=== PATIENT | female | born 1990 | race Two or more races ===

== ENCOUNTER 2017-04-22 11:00 | Emergency (ER) | payer OTHER ==
[2017-04-22 11:19] VITALS: BP 101/60
--- NOTE | 2017-04-22 11:46 | UC ---
Complaint Female HPI - HPI Summary HPI Summary: 26 y/o female presents to the urgent care c/o pelvic pain and vaginal bleeding since last. Pt states she did a test 1 week ago and it was positive. Yesterday she was spotting and pelvic pain developed this morning with vaginal bleeding passing out big clots. Pelvic pain is 9/10. LMP: 2016 with regular menstrual cycles. She felt a relief of her pelvic pain when she passed out a big clot at home. She thinks she is having a miscarriage. She has now change 4 pads. Pt denies fever, SOB, chest pain, N/V/D. - History Of Current Complaint Chief Complaint: UCGU Stated Complaint: PERSONAL Time Seen by Provider: 04/22/17 11:39 Hx Obtained From: Patient Hx Last Menstrual Period: 02/27/17 ?: Yes Onset/Duration: Sudden Onset, Lasting Hours - since last night, Still Present Timing: Constant Severity Initially: Moderate Severity Currently: Severe Pain Intensity: 9 - pelvic pain Pain Scale Used: 0-10 Numeric Character: Sharp, Cramping Aggravating Factor(s): Movement Alleviating Factor(s): Position Associated Signs And Symptoms: Positive: Vaginal Bleeding/Discharge, Nausea - Risk Factors Ectopic Risk Factor: Negative Ovarian Torsion Risk Factor: Negative - Allergies/Home Medications Allergies/Adverse Reactions: Allergies Allergy/AdvReac Type Severity Reaction Status Date / Time No Known Allergies Allergy Verified 04/22/17 11:10 Home Medications: Home Medications NK [No Home Medications Reported] 04/22/17 [History Confirmed 04/22/17] PMH/Surg Hx/FS Hx/Imm Hx Previously Healthy: Yes - Surgical History Surgical History: None - Family History Known Family History: Positive: Diabetes - Social History Occupation: Employed Full-time Lives: With Family Alcohol Use: None Substance Use Type: None Smoking Status (MU): Light Every Day Tobacco Smoker Amount Used/How Often: states social smoker Have You Smoked in the Last Year: No - Immunization History Most Recent Influenza Vaccination: unknown Most Recent Tetanus Shot: within last 2 yrs per record Most Recent Pneumonia Vaccination: none Review of Systems Constitutional: Negative Skin: Negative Eyes: Negative ENT: Negative Respiratory: Negative Cardiovascular: Negative Gastrointestinal: Negative Genitourinary: Other - vaginal bleeding with pelvic pain Neurovascular: Negative Musculoskeletal: Negative Neurological: Negative Psychological: Negative All Other Systems Reviewed And Are Negative: Yes Physical Exam Triage Information Reviewed: Yes Appearance: Well-Appearing, No Pain Distress, Well-Nourished, Thin Vital Signs: Initial Vital Signs Temp 99.0 F 04/22/17 11:12 Pulse 79 04/22/17 11:12 Resp 18 04/22/17 11:12 BP 101/60 04/22/17 11:12 Pulse Ox 99 04/22/17 11:12 Vital Signs Reviewed: Yes Eye Exam: Normal Eyes: Positive: Conjunctiva Clear - PERRLA, EOMI ENT Exam: Normal ENT: Positive: Normal ENT inspection, Hearing grossly normal, Pharynx normal, TMs normal Dental Exam: Normal Neck exam: Normal Neck: Positive: Supple, Nontender, No Lymphadenopathy Respiratory Exam: Normal Respiratory: Positive: Chest non-tender, Lungs clear, Normal breath sounds Cardiovascular Exam: Normal Cardiovascular: Positive: RRR, No Murmur, Pulses Normal, Brisk Capillary Refill Abdominal Exam: Normal Abdomen Description: Positive: No Organomegaly, Soft, Other: - B/L pelvic tenderness on deep palpation.. Negative: CVA Tenderness (R), CVA Tenderness (L) Musculoskeletal Exam: Normal Musculoskeletal: Positive: Strength Intact, ROM Intact, No Edema Neurological Exam: Normal Psychological Exam: Normal Skin Exam: Normal Complaint Female Dx - Course Course Of Treatment: 26 y/o female presents to the urgent care c/o pelvic pain and vaginal bleeding since last. Pt states she did a test 1 week ago and it was positive. Yesterday she was spotting and pelvic pain developed this morning with vaginal bleeding passing out big clots. Pelvic pain is 9/10. LMP: 02/27/2017 with regular menstrual cycles. She felt a relief of her pelvic pain when she passed out a big clot at home. She thinks she is having a miscarriage. She has now change 4 pads. Pt denies fever, SOB, chest pain, N/V/ D. Urine test is positive. By last LMP patient is approximately 7 weeks . Patient is no in any discomfort and she is hemodynamically stable. I discussed the case with Dr. Martins (attending Physician) and he recommended to transfer the patient to the ED for a pelvic U/S to r/o threatened miscarriage vs complete miscarriage. Patient still having mild vaginal bleeding and mild abdominal pain. She did not request any pain management. Before patient left the she is hemodynamically stable and A+O X 3. I discussed the case with Judith ABBOTT [place] [facility] [place]. She is aware of patient being transferred to their facility by private car since patient declined ambulance. - Differential Dx/Diagnosis Differential Diagnosis/HQI/PQRI: Ectopic, Ovarian Cyst, Pelvic Inflammatory Disease, , Urinary Tract Infection, Other - threatening , imcomplete , Provider Diagnoses: 1- Threatening . 2- with pelvic pain and vaginal bleeding - Physician Notifications Discussed Patient Care With: Valdo Martins - DR Martins agreed with pt's care and plan Discharge - Discharge Plan Condition: Stable Disposition: AGAINST MEDICAL ADVICE Patient Education Materials: Threatened Miscarriage (ED) Referrals: [facility] [Outside] No Primary Care Phys,NOPCP [Primary Care Provider] - Additional Instructions: Please go immediately to the [facility] ER for further evaluation and treatment of your threatening miscarriage. The ir risk of , , shock, ectopic , incomplete if you don't go to the ER.
[2017-04-22] MEDS ORDERED: Ibuprofen TAB* 400 MG PO ONE (12:36)
== END 2017-04-22 12:21 | disposition left against medical advice (07) ==
LOC: UCEAST 11:00
DX: O46.91 Antepartum hemorrhage, unspecified, first trimester (principal); Z3A.01 Less than 8 weeks gestation of pregnancy
CPT/HCPCS: 81003; 84702; 99212; G0463

== ENCOUNTER 2017-11-24 15:19 | Emergency (ER) | payer SELFPAY ==
[2017-11-24] MEDS ORDERED: Metoclopramide IV* 5 MG/ML 2 ML VIAL IV ONE (18:57)
[2017-11-24] MEDS ORDERED: NS 0.9% 1000 ML* 2,000 ML IV ONE (18:57)
[2017-11-24 19:15] LABS: ABS Basophils 0.1 10^3/ul (0-0.2); ABS Eosinophils 0 10^3/ul (0-0.6); ABS Lymphocytes 1.3 10^3/ul (1.0-4.8); ABS Monocytes 0.6 10^3/ul (0-0.8); ABS Neutrophils 8.8 10^3/ul (1.5-7.7); ABS Nucleated RBC 0 10^3/ul; Eosinophil % 0.2 % (0-6); Hematocrit 38 % (35-47); Hemoglobin 13.1 g/dl (12.0-16.0); Lymphocyte % 12.4 % (25-47); Mean Corpuscular HGB Conc 35 g/dl (31-36); Mean Corpuscular Hemoglobin 31 pg (27-31); Mean Corpuscular Volume 90 fL (80-97); Mean Platelet Volume 7.7 um3 (7.4-10.4); Nucleated Red Blood Cells % 0; Platelet Count 217 10^3/ul (150-450); Red Blood Count 4.21 10^6/ul (4.0-5.4); Red Cell Distribution Width 14 % (10.5-15); White Blood Count 10.8 10^3/ul (3.5-10.8)
[2017-11-24 19:20] LABS: INR 0.9 (0.77-1.02)
[2017-11-24 19:35] LABS: EGFR Non-African American 160.2 (>60)
--- NOTE | 2017-11-24 20:17 | RAD ---
Indication: 16 weeks 5 days gestation based on July 30, 2017 LMP. Vomiting. Comparison: No relevant prior exams available on the [facility] PACS for comparison. Technique: Transabdominal obstetrical ultrasound. REPORT: Single intrauterine fetus is in variable presentation. Spontaneous motion and cardiac activity present. heart rate: 144 bpm. The volume of amniotic fluid is qualitatively normal. Amniotic fluid index is 12.3 cm. (Normal range 5-25 cm) The cervical length is 2.9 cm. Fundal placenta without evidence for previa. Mean BPD: 3.75 cm corresponding to 17 weeks 4 days Mean HC: 13.65 cm corresponding to 17 weeks 1 day Mean AC: 11.76 cm corresponding to 17 weeks 4 days Mean FL: 2.27 cm corresponding to 16 weeks 6 days Composite gestational age: 17 weeks 2 days HC / AC ratio: 1.16 weight: 184 +/- 2.7 g. Three-vessel cord with normal ventral abdominal wall insertion. Limited four-chamber heart view due to early gestational age without gross abnormality. IMPRESSION: Single live intrauterine gestation with normal movement and normal cardiac activity with estimated gestational age of 17 weeks 2 days based on this exam.
[2017-11-24 20:44] LABS: Urine Appearance Clear; Urine Blood Negative (Negative); Urine Color Straw; Urine Ketones 2+ (Negative); Urine Protein Negative (Negative); Urine Urobilinogen Negative (Negative)
[2017-11-24] MEDS ORDERED: Metoclopramide TAB* 10 MG PO ONE (21:19)
--- NOTE | 2017-11-24 21:34 | ED ---
Holly Lerner Thomas, scribed for Ge Mejia MD on 11/24/17 at 1939 . 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 Hilario. The patient has been dealing with vomiting since her early . She feels nauseous, dehydrated, and feels as if she is about to pass out, especially when standing. She reports losing 20 pounds in the last few months. She denies any pain, diarrhea, constipation, vaginal discharge, runny nose, sore throat, cough, congestion, fever, or chills. LMP July 2017. - History of Current Complaint Chief Complaint: EDNauseaVomitDiarrh Stated Complaint: VOMITING Time Seen by Provider: 11/24/17 18:35 Hx Obtained From: Patient Onset/Duration: Started Weeks Ago, Still Present Timing: Intermittent Current Severity: Moderate Pain Intensity: 8 Associated Signs and Symptoms: Positive: Nausea, Vomiting. Negative: Fever - Assessment Hx Now: Yes - states SAB: 0 IEA: 0 - Additional Pertinent History Maternal Blood Type and Rh: O Positive - Allergies/Home Medications Allergies/Adverse Reactions: Allergies Allergy/AdvReac Type Severity Reaction Status Date / Time No Known Allergies Allergy Verified 11/24/17 15:24 PMH/Surg Hx/FS Hx/Imm Hx Endocrine/Hematology History: Denies: Hx Diabetes, Hx Thyroid Disease Cardiovascular History: Denies: Hx Hypertension Respiratory History: Denies: Hx Asthma, Hx Chronic Obstructive Pulmonary Disease (COPD) GI History: Denies: Hx Ulcer Infectious Disease History: No Infectious Disease History: Denies: Hx Hepatitis, Hx Human Immunodeficiency Virus (HIV), Traveled Outside the [place] in Last 30 Days - Family History Known Family History: Positive: Diabetes - Social History Alcohol Use: None Substance Use Type: Reports: None Smoking Status (MU): Light Every Day Tobacco Smoker Amount Used/How Often: states social smoker Have You Smoked in the Last Year: No Review of Systems Positive: Other - Feels dehydrated, as if about to pass out, weight loss. Negative: Fever, Chills Negative: Sore Throat, Nasal Discharge Negative: Cough, Other - congestion Positive: Vomiting, Nausea. Negative: Diarrhea, Other - constipation Negative: discharge Positive: Other - any pain All Other Systems Reviewed And Are Negative: Yes Physical Exam - Summary Physical Exam Summary: General: well-appearing, no pain distress Skin: warm, color reflects adequate perfusion, dry Head: normal Eyes: EOMI, HEIDY ENT: normal Neck: supple, nontender Respiratory: CTA, breath sounds present Cardiovascular: RRR Abdomen: soft, nontender Bowel: present Musculoskeletal: normal, strength/ROM intact Neurological: normal, sensory/motor intact, A&O x3 Psychological: affect/mood appropriate - Physical Exam Triage Information Reviewed: Yes Vital Signs Reviewed: Yes Diagnostics - Vital Signs Vital Signs Temp Pulse Resp BP Pulse Ox 11/24/17 19:00 74 115/56 100 11/24/17 18:30 73 113/63 98 11/24/17 18:26 73 98 11/24/17 18:25 116/62 11/24/17 17:20 99.5 F 67 16 118/64 11/24/17 15:21 98.7 F 77 15 108/60 98 - Laboratory Lab Results: Lab Results 11/24/17 11/24/17 11/24/17 Range/Units 18:55 18:55 18:55 WBC 10.8 (3.5-10.8) 10^3/ul RBC 4.21 (4.0-5.4) 10^6/ul Hgb 13.1 (12.0-16.0) g/dl Hct 38 (35-47) % MCV 90 (80-97) fL MCH 31 (27-31) pg MCHC 35 (31-36) g/dl RDW 14 (10.5-15) % Plt Count 217 (150-450) 10^3/ul MPV 7.7 (7.4-10.4) um3 Neut % (Auto) 81.2 (38-83) % Lymph % (Auto) 12.4 L (25-47) % Towner % (Auto) 5.6 (0-7) % Eos % (Auto) 0.2 (0-6) % Baso % (Auto) 0.6 (0-2) % Absolute Neuts (auto) 8.8 H (1.5-7.7) 10^3/ul Absolute Lymphs (auto) 1.3 (1.0-4.8) 10^3/ul Absolute Monos (auto) 0.6 (0-0.8) 10^3/ul Absolute Eos (auto) 0 (0-0.6) 10^3/ul Absolute Basos (auto) 0.1 (0-0.2) 10^3/ul Absolute Nucleated RBC 0 10^3/ul Nucleated RBC % 0 INR (Anticoag Therapy) 0.90 (0.77-1.02) Sodium 135 L (139-145) mmol/L Potassium 3.5 (3.5-5.0) mmol/L Chloride 101 (101-111) mmol/L Carbon Dioxide 22 (22-32) mmol/L Anion Gap 12 H (2-11) mmol/L BUN 8 (6-24) mg/dL Creatinine 0.47 L (0.51-0.95) mg/dL Est GFR ( Amer) 206.0 (>60) Est GFR (Non-Af Amer) 160.2 (>60) BUN/Creatinine Ratio 17.0 (8-20) Glucose 77 (70-100) mg/dL Lactic Acid (0.5-2.0) mmol/L Calcium 8.8 (8.6-10.3) mg/dL Total Bilirubin 0.60 (0.2-1.0) mg/dL AST 12 L (13-39) U/L ALT 9 (7-52) U/L Alkaline Phosphatase 43 (34-104) U/L C-Reactive Protein 3.93 (< 5.00) mg/L Total Protein 7.2 (6.4-8.9) g/dL Albumin 4.0 (3.2-5.2) g/dL Globulin 3.2 (2-4) g/dL Albumin/Globulin Ratio 1.3 (1-3) TSH Pending Beta HCG, Quant Pending 11/24/17 Range/Units 18:55 WBC (3.5-10.8) 10^3/ul RBC (4.0-5.4) 10^6/ul Hgb (12.0-16.0) g/dl Hct (35-47) % MCV (80-97) fL MCH (27-31) pg MCHC (31-36) g/dl RDW (10.5-15) % Plt Count (150-450) 10^3/ul MPV (7.4-10.4) um3 Neut % (Auto) (38-83) % Lymph % (Auto) (25-47) % Towner % (Auto) (0-7) % Eos % (Auto) (0-6) % Baso % (Auto) (0-2) % Absolute Neuts (auto) (1.5-7.7) 10^3/ul Absolute Lymphs (auto) (1.0-4.8) 10^3/ul Absolute Monos (auto) (0-0.8) 10^3/ul Absolute Eos (auto) (0-0.6) 10^3/ul Absolute Basos (auto) (0-0.2) 10^3/ul Absolute Nucleated RBC 10^3/ul Nucleated RBC % INR (Anticoag Therapy) (0.77-1.02) Sodium (139-145) mmol/L Potassium (3.5-5.0) mmol/L Chloride (101-111) mmol/L Carbon Dioxide (22-32) mmol/L Anion Gap (2-11) mmol/L BUN (6-24) mg/dL Creatinine (0.51-0.95) mg/dL Est GFR ( Amer) (>60) Est GFR (Non-Af Amer) (>60) BUN/Creatinine Ratio (8-20) Glucose (70-100) mg/dL Lactic Acid 0.9 (0.5-2.0) mmol/L Calcium (8.6-10.3) mg/dL Total Bilirubin (0.2-1.0) mg/dL AST (13-39) U/L ALT (7-52) U/L Alkaline Phosphatase (34-104) U/L C-Reactive Protein (< 5.00) mg/L Total Protein (6.4-8.9) g/dL Albumin (3.2-5.2) g/dL Globulin (2-4) g/dL Albumin/Globulin Ratio (1-3) TSH Beta HCG, Quant Result Diagrams: 11/24/17 18:55 11/24/17 18:55 Lab Statement: Any lab studies that have been ordered have been reviewed, and results considered in the medical decision making process. - EKG 19:35 Cardiac Rate: NL ST Segment: Normal EKG Interpretation: Sinus arrythmia at 75 BPM. Borderline prolonged QT interval (QTc 476). - Additional Comments Diagnostic Additional Comments: US PREG LIMITED Interpreted by radiologist. IMPRESSION: Single live intrauterine gestation with normal movement and normal cardiac activity with estimated gestational age of 17 weeks 2 days based on this exam. Dr. Mejia has reviewed this report. Course/Dx - Course Course Of Treatment: Medications reviewed. Feels improved in ED after IVF and reglan. Discussed results with the patient and family. F/U with Dr Hilario; return if worse. - Diagnoses Provider Diagnoses: Nausea/vomiting in Discharge - Sign-Out/Discharge Documenting (check all that apply): Discharge - Discharge Plan Condition: Stable Disposition: HOME Prescriptions: Metoclopramide TAB* [Reglan TAB*] 10 mg PO Q6H PRN #10 tab PRN Reason: Nausea Patient Education Materials: Nausea and Vomiting in (ED) Referrals: Azar Hilario MD [Medical Doctor] - Additional Instructions: FOLLOW UP WITH YOUR OBGYN. RETURN TO THE EMERGENCY DEPARTMENT FOR ANY WORSENING OF YOUR CONDITION OR QUESTIONS OR CONCERNS. - Billing Disposition and Condition Condition: STABLE Disposition: HOME The documentation as recorded by the Holly adames Thomas accurately reflects the service I personally performed and the decisions made by me, Ge Mejia MD.
[2017-11-24 21:38] VITALS: BP 154/92
== END 2017-11-24 21:39 | disposition home or self-care (01) ==
LOC: ED 15:19
DX: O21.0 Mild hyperemesis gravidarum (principal); I49.9 Cardiac arrhythmia, unspecified; Z3A.17 17 weeks gestation of pregnancy; Z87.891 Personal history of nicotine dependence
CPT/HCPCS: 36415; 76815; 80053; 81003; 83605; 84443; 84702; 85025; 85610; 86140; 93005; 96374; 99284; A9270-GY; J2765

== ENCOUNTER 2018-04-29 11:28 | Inpatient (IN) | payer MEDICAID, OTHER ==
--- NOTE | 2018-04-29 12:54 | HP ---
General Information - Reason for Visit SROM, early labor - General Information Maternal Age: 27 Grav: 6 Para: 3 SAB: 2 IEA: 0 Estimated Due Date: 05/06/18 Determined By: LMP Maternal Blood Type and Rh: O Positive - Results this Serology/RPR Result: Non-Reactive Rubella Result: Immune HBsAg Result: Negative HIV Result: Negative GBS Culture Result: Negative Past Medical History Delivery History: Hx Uncomplicated Vaginal Delivery Pertinent Past Medical History: See Records Pertinent Past Surgical History: None Pertinent Family History: See Records - Dm, colon CA - Antepartal Records Antepartal Records: Reviewed, Complicated by: - hx labor and delivery at 36weeks Review of Systems Constitutional: Comfortable CV Complaint: No Respiratory: Shortness of Breath: No Gastrointestinal: No Nausea/Vomiting, Normal Bowel Movement Genitourinary: Leaking Fluid, No Dysuria, No Bleeding Musculoskeletal: Contractions Neurological: No Headache, No Visual Changes Movement: Normal Exam Allergies/Adverse Reactions: Allergies No Known Allergies Allergy (Verified 11/24/17 15:24) T:98.5, P:71, R:18, BP: 110/68, O2:99 - Measurements Height: 5 ft 4 in Weight: 145 lb Weight in lbs: [id number] Body Mass Index (BMI): 24.9 Pre- Weight: 110 lb Weight Gained This : 35 lbs and 0 ozs - Exam Breast: Breast Exam Deferred CVA: No CVA Tenderness Extremities: No Edema Heart: Normal Rhythm/Heart Sounds HEENT: No Significant Findings Lungs: Clear Bilaterally Rectal: Rectal Exam Deferred Reflexes: DTR 2+ Thyroid: No Thyromegaly - Ultrasound/Biophysical Profile Ultrasound Status: Not Done Targeted Exam Findings Estimated Weight: [id number] Cervical Exam: 3cm Effacement: 80% Station: -1 Presenting Part: Vertex Membrane Status: Leaking Bleeding/Discharge: Bloody Show EFM Findings - External Monitor Findings Baseline Heart Rate: 140 External Monitor Findings: Accelerations Present, No Pattern of Variable or Late Decelerations, Variability Moderate, Baseline Stable Contractions: Regular, Mild, 45-90 Seconds Contraction Frequency: 3-4 Assessment/Plan - Assessment 27 y.o. at 39 wks, SROM, VSS, afebrile, early labor - Plan Plan: Observe - plan augmentation if no progress
--- NOTE | 2018-04-29 17:12 | PN ---
Progress Note - Progress Note Date of Service: 04/29/18 Note: S:Pt increasingly uncomfortable with ctx. Increased pressure without urge to push. Pt reports continued LOF, -VB, +FM. O: T 99.0F. NST: baseline 125bpm, +accels, -decels, mod variability. Ctx q 3min. cervical exam at 4pm: 4/90/-1 A: 27 y.o. at 39weeks EGA, active labor. P: 1) Anticipate vaginal delivery 2) position changes and therapeutic support PRN
[2018-04-29] MEDS ORDERED: Calcium Carbonate CHEW TAB* 500 MG (TUMS) ONE (18:12)
--- NOTE | 2018-04-29 18:34 | PROCNOTE ---
[facility] OB: Delivery Note - Delivery A Date of : 04/29/18 Time of : 18:21 Sex: Male Score 1 Minute: 9 Score 5 Minutes: 9 Gestational Age in Weeks and Days at Delivery: 39 Weeks and 0 Days Delivery Method: Spontaneous Vaginal Amniotic Fluid: Clear Estimated Blood Loss: 200 Anesthesia/Analgesia: None Delivered By: Hannah Soliman - Perineum Perineal Injury: None/Intact Perineal Repair: None - Events Delivery Events of Note: Pitocin Only After Delivery Delivery Events of Note Comment: nuchal cord x 1
[2018-04-29] MEDS ORDERED: Dibucaine 1% 28.35 GM TUBE PR PRN (19:58)
[2018-04-29] MEDS ORDERED: Witch Hazel PAD* JAR TOPICAL PRN (19:58)
[2018-04-29] MEDS ORDERED: Glycerin ADULT SUPP PR PRN (19:58)
[2018-04-29] MEDS ORDERED: Acetaminophen TAB* 325 MG PO PRN (19:58)
[2018-04-29] MEDS ORDERED: OXYTOCIN* 10 UNITS/ML 1 ML VIAL IM ONE (19:58)
[2018-04-29] MEDS ORDERED: Ibuprofen TAB* 600 MG ONE (20:02)
[2018-04-29] MEDS: Ibuprofen TAB* 600 MG PO PRN (20:03)
[2018-04-29] MEDS ORDERED: Simethicone TAB* 80 MG TAB.CHEW PO SCH (21:00)
[2018-04-30] MEDS: Ibuprofen TAB* 600 MG PO PRN ×3 (03:31→15:47)
[2018-04-30 07:14] LABS: ABS Basophils 0.1 10^3/ul (0-0.2); ABS Eosinophils 0.1 10^3/ul (0-0.6); ABS Lymphocytes 2.1 10^3/ul (1.0-4.8); ABS Monocytes 1.2 10^3/ul (0-0.8); ABS Neutrophils 11.2 10^3/ul (1.5-7.7); ABS Nucleated RBC 0 10^3/ul; Eosinophil % 0.4 % (0-6); Hematocrit 36 % (35-47); Hemoglobin 12.3 g/dl (12.0-16.0); Lymphocyte % 14.1 % (25-47); Mean Corpuscular HGB Conc 34 g/dl (31-36); Mean Corpuscular Hemoglobin 29 pg (27-31); Mean Corpuscular Volume 87 fL (80-97); Mean Platelet Volume 7.9 um3 (7.4-10.4); Nucleated Red Blood Cells % 0; Platelet Count 197 10^3/ul (150-450); Red Cell Distribution Width 14 % (10.5-15); White Blood Count 14.7 10^3/ul (3.5-10.8)
[2018-04-30] MEDS ORDERED: Ferrous Gluconate TAB* 324 MG TAB PO SCH (09:00)
[2018-04-30] MEDS: Docusate CAP* 100 MG PO SCH ×2 (09:34→13:07)
[2018-04-30 16:10] VITALS: BP 101/61
== END 2018-04-30 16:15 | disposition home or self-care (01) | DRG 560 ==
LOC: MCHOBOUT 11:28 → MCHOB 11:44
PROVIDERS: ADMIT Midwife; ATTEND Midwife
PROC: 10E0XZZ Delivery of Products of Conception, External Approach (ICD-10-PCS; principal; 2018-04-29)
PROC: 10907ZC Drainage of Amniotic Fluid, Therapeutic from Products of Conception, Via Natural or Artificial Opening (ICD-10-PCS; 2018-04-29)
DX: O69.81X0 Labor and delivery complicated by cord around neck, without compression, not applicable or unspecified (principal); Z3A.39 39 weeks gestation of pregnancy; Z37.0 Single live birth
CPT/HCPCS: 36415; 85025; A9270-GY; J2590

== ENCOUNTER 2018-09-25 17:48 | Emergency (ER) | payer OTHER ==
--- NOTE | 2018-09-25 19:33 | ED ---
Lower Extremity - HPI Summary HPI Summary: 28-year-old female presents with right foot injury today. States she stubbed her right foot. She states that there is a little abrasion this bleeding. She denies any numbness or tingling. States still able to ambulate on the area. She denies any other injury. No significant medical conditions. no previous fracture to the area. - History of Current Complaint Chief Complaint: EDExtremityLower Stated Complaint: RT FOOT INJURY Time Seen by Provider: 09/25/18 19:06 Hx Last Menstrual Period: 02/27/17 Pain Intensity: 9 - Allergies/Home Medications Allergies/Adverse Reactions: Allergies Allergy/AdvReac Type Severity Reaction Status Date / Time No Known Allergies Allergy Verified 11/24/17 15:24 Home Medications: Home Medications NK [No Home Medications Reported] 09/25/18 [History Confirmed 09/25/18] PMH/Surg Hx/FS Hx/Imm Hx Endocrine/Hematology History: Denies: Hx Diabetes, Hx Thyroid Disease Cardiovascular History: Denies: Hx Hypertension Respiratory History: Denies: Hx Asthma, Hx Chronic Obstructive Pulmonary Disease (COPD) GI History: Denies: Hx Ulcer Infectious Disease History: No Infectious Disease History: Denies: Hx Hepatitis, Hx Human Immunodeficiency Virus (HIV), Traveled Outside the [place] in Last 30 Days - Family History Known Family History: Positive: None, Diabetes - Social History Alcohol Use: None Substance Use Type: Reports: None Smoking Status (MU): Never Smoked Tobacco Type: Cigarettes Amount Used/How Often: states social smoker Have You Smoked in the Last Year: No Review of Systems Negative: Fever Negative: Chest Pain Negative: Shortness Of Breath Positive: Myalgia - right foot pain All Other Systems Reviewed And Are Negative: Yes Physical Exam Triage Information Reviewed: Yes Vital Signs On Initial Exam: Initial Vitals Temp Pulse Resp BP Pulse Ox 98.6 F 82 18 112/67 97 09/25/18 17:55 09/25/18 17:55 09/25/18 17:55 09/25/18 17:55 09/25/18 17:55 Vital Signs Reviewed: Yes Appearance: Positive: Well-Appearing Skin: Positive: Warm, Dry, Other - abrasion to end of nail of right great toe Head/Face: Positive: Normal Head/Face Inspection Eyes: Positive: Normal, Conjunctiva Clear ENT: Positive: Pharynx normal Respiratory/Lung Sounds: Positive: Clear to Auscultation, Breath Sounds Present Cardiovascular: Positive: Normal, RRR Musculoskeletal: Positive: Other - tenderness right great toe, good pulses, capillary refill<2 secs Neurological: Positive: Normal Psychiatric: Positive: Normal Diagnostics - Vital Signs Vital Signs Temp Pulse Resp BP Pulse Ox 09/25/18 17:55 98.6 F 82 18 112/67 97 - Laboratory Lab Statement: Any lab studies that have been ordered have been reviewed, and results considered in the medical decision making process. - Radiology foot Radiology Interpretation Completed By: ED Physician Summary of Radiographic Findings: no fracture Lower Extremity Course/Dx - Course Course Of Treatment: 28-year-old female presents with right foot injury today. States she stubbed her right foot. She states that there is a little abrasion this bleeding. She denies any numbness or tingling. States still able to ambulate on the area. She denies any other injury. No significant medical conditions. On exam tenderness of right great toe. Has abrasion noted to right great toe. X-ray read by me as normal. Told to treat with rice. Patient understands agrees plan - Diagnoses Differential Diagnosis/HQI/PQRI: Positive: Fracture (Closed), Sprain, Strain Provider Diagnoses: Right foot injury Discharge - Sign-Out/Discharge Documenting (check all that apply): Patient Departure Patient Received Moderate/Deep Sedation with Procedure: No - Discharge Plan Condition: Good Disposition: HOME Patient Education Materials: R.I.C.E. Treatment (ED) Referrals: No Primary Care Phys,NOPCP [Primary Care Provider] - Additional Instructions: Wear hard sole shoes Ice, elevate keep abrasion clean Take Tylenol or ibuprofen for pain every 6 hours as needed Follow up with primary if no improvement Return to ED if develop or any new or worsening symptoms - Billing Disposition and Condition Condition: GOOD Disposition: Home
[2018-09-25 19:44] VITALS: BP 109/70
--- NOTE | 2018-09-26 15:50 | PN ---
Progress Note - Progress Note Date of Service: 09/25/18 Note: Pt. was seen in the ED yesterday for foot injury. Xray read as negative in ED last night. Final radiology report today is reading a slightly angulated fx of the proximal phalanx of the second digit. I attempted to call pt. today around 1330 with no answer, message left to return call. Tried calling 's number listed in chart which was disconnected. Will send letter.
== END 2018-09-25 19:43 | disposition home or self-care (01) ==
LOC: ED 17:48
DX: S99.921A Unspecified injury of right foot, initial encounter (principal); M79.671 Pain in right foot; W22.8XXA Striking against or struck by other objects, initial encounter; Y92.9 Unspecified place or not applicable
CPT/HCPCS: 99282

== ENCOUNTER 2019-09-03 22:38 | Emergency (ER) | payer OTHER ==
--- OUTSIDE RECORDS SUMMARY | 2019-09-03 22:53 | XMS REPORT | Continuity of Care Document ---
:1990 Author Organization [facility] Address [address] [place] [address] Phone Care Team Providers Name Role Phone Natalie Le NP Unavailable Unavailable Allergies, Adverse Reactions, Alerts Substance Reaction Status No Known Allergies Active Medications Medication Instructions Dosage Effective Dates Status Comments (start - stop) Depo-Provera 150 IM Q 11-13 weeks - Active mg/mL intramuscular suspension Depo-Provera 150 IM Q 11-13 weeks - No Longer mg/mL intramuscular Active suspension Problems Condition Effective Dates (start - Clinical Status Comments stop) Human immunodeficiency virus [HIV] - counseling Encounter for oth general cnsl and - advice on contraception Encounter for initial prescription of injectable contracep Encounter for test, result negative Encntr screen for infections w sexl mode of transmiss Encounter for test, result negative Body mass index (BMI) 24.0-24.9, adult Encounter for initial prescription of injectable contracep Encntr screen for infections w sexl mode of transmiss Human immunodeficiency virus [HIV] - counseling Encounter for removal of intrauterine contraceptive device Encounter for insertion of intrauterine contraceptive device Encntr for f/u exam aft trtmt for cond oth than malig neoplm Encounter for elective termination of 9 weeks gestation of Encounter for oth general cnsl and advice on contraception Encntr screen for dis of the bld/bld-form org/immun mechnsm Encounter for test, result positive Encounter for oth general cnsl and advice on contraception Encntr screen for infections w sexl mode of transmiss Encounter for elective termination of Encntr screen for dis of the bld/bld-form org/immun mechnsm 9 weeks gestation of Encounter for test, result positive Encounter for test, result positive Weeks of gestation of not specified Encounter for surveillance of other contraceptives Encounter for initial prescription of other contraceptives Encntr screen for dis of the bld/bld-form org/immun mechnsm Encounter for elective termination of Less than 8 weeks gestation of Encounter for test, result positive Encounter for test, result positive Weeks of gestation of not specified RhD positive - Active Procedures Procedure Date PREVENTIVE COUNSELING, Under 8 Minutes OFFICE/OUTPATIENT VISIT, EST URINE TEST N.GONORRHOEAE, DNA, AMP PROB CHYLMD DNA, AMP PROBE INJECTION DEPO/CEFTRIAXONE DEPO BLOOD PRESSURE Height/Weight Method Initiation OTHER Medical Services Contraceptive Camp Nurse.Svc. Other Camp Nurse.Svc. STI Results Test Name Date and Time Measure Units Reference Range Abnormal Flag Status Comments Panel Description: C trach DNA XXX Ql PCR Final Urine CT/GC 00:00:00 Negative N Final Performed by:
CDD Combo - CT ([id number])

Panel Description: Amplified GC - Urine Final Urine CT/GC 00:00:00 Negative N Final : Combo - GC No

Performed by:
CDD ([id number])

Panel Description: High Sensitivity Urine Test Final High Sensitivity Urine 10:58:06 NegativeInternal Quality Final Test Control: Positive Advance Directives Directive Yes / No Effective Date File Name No information Encounters Encounter Practice Location Reason(s) Diagnoses Date Provider Providers Description For Visit Copied on Encounter OFFICE/OUTPA [facility] Rey Estrada. Referring TIENT VISIT, [facility] immunodeficienc 1-201 [address] [place] [address] Provider: EST Of Greater Renewal y virus [HIV] [address] St, [place], [place], ([place], [address], [place], [address] complaint) nter for oth [place]. [address], [place] general cnsl St, [place], [place], [place], [place], [address]. [address], [place] contraceptionEn tel:[phone] counter for [phone] initial prescription of injectable contracepEncoun ter for test, result negativeEncntr screen for infections w sexl mode of transmiss [facility] Encounter for Rey Estrada. Referring [facility] [place] test, 0-201 [address] [place] Provider: Of Greater result [address], [place], [facility], [place], [address], [place], [address] mass index [place]. [address] [place] , New (BMI) St, [place], [place], [place], 24.0-24.9, [place], [address]. [address], [place] adultEncounter tel:[phone] for initial [phone] prescription of injectable contracepEncntr screen for infections w sexl mode of transmiss [facility] [place] immunodeficienc 9. [address] Of Greater y virus [HIV] [address] [place] [address] , [place], counselingEncou [place], [place], [address] [place] [address]. [address], New removal of tel:[phone] [place], [place], intrauterine [address], [place] contraceptive tel:[phone] [facility] Encounter for Rey Estrada. Referring [facility] [place] insertion of 4 [address] [place] [address] [place] Provider: Of Greater intrauterine [address], [place], [place], [place], [address], Shona R, [address] deviceEncntr [place]. [address], [place] for f/u exam [address], [place], [place], [place], [address], [place] cond oth than [address]. tel:[phone] malig neoplm tel:[phone] [facility] Encounter for Rey Estrada. Referring [facility] [place] elective 8 [address] [place] [address] [place] Provider: Of Greater termination of 6 , [place], [place], [place], [address], Shona R, [address] weeks gestation [place]. [address], [place] of [place] [address], [place], [place], [place], [address], [place] ter for oth [address]. tel:[phone] general cnsl tel:[phone] and advice on [phone] contraception [facility] Encntr screen Dec-0 White [place]. [facility] for dis of the 7 [address] [place] [address] Of Greater bld/bld-form 6 , [place], [place], org/[place], [address], [address] [place]. St, [facility] for [place], [place], test, result [address], [place] positiveEncount tel:[phone] er for oth [phone] general cnsl and advice on contraceptionEn cntr screen for infections w sexl mode of transmiss [facility] Encounter for Mar-1 Shona Referring [facility] elective 1-201 [place]. [address] Provider: Of Greater termination of [address], [place], pregnancyEncntr [place], [place], Shona R, [address] screen for dis [address]. [address] , [place] of the tel:[phone], [place], [place], bld/bld-form [address] [place], [address], [place] org/immun [address]. tel:[phone] mechnsm9 weeks tel:[phone] gestation of 744482 [facility] Encounter for Mar-1 Shona [facility] [place] test, 0-201 [place]. [address] Of Greater result positive [address], [place], [place], [place], [address], New tel:[phone] [place], [address], [place] tel:[phone] [facility] Encounter for Mar-1 [employer] [facility] test, 0-201 Carissa. [address] Provider: Of Greater result [address], NURSE [place], positiveWeeks [place], [place], PPSFL. [address] [place] [address], not tel:[phone] [place], specified [address], [place] tel:[phone] [facility] Fe-0 Kavon Hendricks. [facility] [place] [address] [place] [address] Of Greater [address], [place], [place], [address]. [address] tel:[phone] , [place] [address] [place], [address], [place] tel:[phone] [facility] Encounter for Aug- Jarrodoson [facility] [place] surveillance of -201 Qasim. [address] Of Greater other [address] [place] [address] [place], [place], contraceptives [place], [place], [address] [address], [place] tel:[phone] [place], [address], [place] tel:[phone] [facility] Encounter for Jun- Kavon Hendricks. Referring [facility] [place] initial [address] [place] [address] Provider: Of Greater prescription of 5 , [place], [place], [facility], [address]. [place], [address] contraceptives tel:[phone], [place] [address] [address], [place], [place], [address]. [address], [place] tel:[phone] tel:[phone] [facility] Encntr screen Jun- Toryky [facility] for dis of the 3-201 Max. [address] Of Greater bld/bld-form 5 [place], [place], org/immun [place], [place], [address] [address], New r for elective tel:[phone] [place], [place], [place] [address], [place] pregnancyLess tel:[phone] than 8 weeks [phone] gestation of [facility] Encounter for Jun-1 Kavon Hendricks. [facility] [place] test, 2- [address] [place] Of Greater result positive 5 , [place], [place], [address]. [address] tel:[phone] , [place] [address] [place], [address], [place] tel:[phone] [facility] Encounter for Nov-0 Lizzy Page. Consulting [facility] [place] test, 6 [address]. Provider: Of Greater result [address] [place]SE [place], positiveWeeks [place], [place], PPSFL. [address] [place] [address], New not tel:[phone] [place], [place] [address], [place] tel:[phone] [facility] Jun- Kristine [employer] [facility] [place] 0-201 Noem[address]. [address] Provider: Of Greater [address], [place]URSE [place], [place], PPS[facility]. [address] [address], [place] tel:[phone] [place], [address], [place] tel:[phone] Family History Family Member Diagnosis Age At Onset 1st degree relative No hx of osteoporosis 1st degree relative No hx of cancer of breast, colon, endometrium or ovary 1st degree relative No hx of venous thromboembolism 1st degree relative No hx of arrhythmia 1st degree relative No hx of coronary heart disease (female <65, male <55) Immunizations Vaccine Date Status Comments measles, mumps and rubella administered Note: PER HEALTH HX ; Source: virus vaccine Source Unspecified measles, mumps and rubella administered Note: PER HEALTH HX ; Source: virus vaccine Source Unspecified HPV, unspecified formulation administered Note: PER HEALTH HX ; Source: Source Unspecified HPV, unspecified formulation administered Note: PER HEALTH HX ; Source: Source Unspecified HPV (9-valent) administered Note: PER HEALTH HX ; Source: Source Unspecified hepatitis B vaccine, adult administered Note: PER HEALTH HX ; Source: dosage Source Unspecified hepatitis B vaccine, adult administered Note: PER HEALTH HX ; Source: dosage Source Unspecified Hep B, adult, 3 dose administered Note: PER HEALTH HX ; Source: Source Unspecified hepatitis A vaccine, adult administered Note: PER HEALTH HX ; Source: dosage Source Unspecified Hep A (adult) administered Note: PER HEALTH HX ; Source: Source Unspecified Payers Payer name Insurance type Covered republican ID Authorization(s) Total Care Todays Options [facility] CI [id number] Social History Type Description Quantity Date Captured Comments Alcohol Use Details Unknown Caffeine Use Details Unknown Tobacco Use Status Never smoked tobacco Smoking Status Never smoker Non-Smoking Tobacco : No Details Available : No Details Available 2018 Use Details Sex Female Vital Signs Date / Height Weight BMI Pulse Blood Temperature Respiratory Body Head BMI Pulse Inhaled Time: Rate Pressure Rate Surface Circumference percentile Ox Ox Area 64.00 135.00 23.1 in lbs 7 mm[Hg] 10:57 kg/m AM eter (2) Chief Complaint And Reason For Visit Most recent encounter only, dated '07/26/2019 10:30'. Control Renewal (chief complaint) Reason For Referral Reason For Referral No information Plan Of Treatment Date Type Action Status No information History Of Present Illness Encounter Date Complaint History Of Present Illness No information Functional Status Date Functional Assessment No information Medications Administered Medication Instructions Dosage Effective Dates (start - stop) Status Comments No information Instructions Date Instruction Additional Information No information Assessments Type Assessment Date assessment Human immunodeficiency virus [HIV] counseling assessment Encounter for oth general cnsl and advice on contraception 2018 assessment Encounter for initial prescription of injectable contracep 2018 assessment Encounter for test, result negative assessment Encntr screen for infections w sexl mode of transmiss Goals Health Concern Goal Type Priority Status Date No information Medical Equipment Description Device [place] Device Identifier Effective Dates (start - stop ) Status No information Mental Status Date Cognitive Assessment No information Health Concerns Observation Date No information Concern Status Date No information
--- NOTE | 2019-09-03 22:56 | ED ---
Abdominal Pain/Female - HPI Summary HPI Summary: 29-year-old female with no significant past medical history on Depo-Provera for control presents to the emergency department today complaining of nausea, vomiting, diarrhea which began yesterday at 2200. Patient states she has had multiple bouts of emesis throwing up approximately once every hour and is unable to eat or drink due to her nausea. Patient states she feels like she has a fever but she is not injured her temperature. Patient also has associated 5 out of 10 epigastric abdominal pain which is becoming worse due to her vomiting. Patient otherwise feels well and denies chest pain, shortness of breath, rash, pain with urination, vaginal discharge or bleeding. Family history and surgical history noncontributory. - History of Current Complaint Chief Complaint: EDNauseaVomitDiarrh Stated Complaint: VOMITING PER PT Time Seen by Provider: 09/03/19 22:55 Hx Obtained From: Patient Hx Last Menstrual Period: 02/27/17 Onset/Duration: Gradual Onset, Lasting Hours Timing: Constant Severity Initially: Severe Severity Currently: Severe Pain Intensity: 7 Pain Scale Used: 0-10 Numeric Location: Diffuse, Epigastric Radiates: No Character: Cramping Alleviating Factor(s): Bowel Movement Associated Signs and Symptoms: Positive: Nausea, Vomiting, Diarrhea Allergies/Adverse Reactions: Allergies Allergy/AdvReac Type Severity Reaction Status Date / Time No Known Allergies Allergy Verified 09/03/19 22:43 Home Medications: Home Medications Medroxyprogesterone Acetate [Depo-Provera Contraceptiv] 150 mg IM SEE INSTRUCTIONS 09/03/19 [History Confirmed 09/03/19] PMH/Surg Hx/FS Hx/Imm Hx Endocrine/Hematology History: Denies: Hx Diabetes, Hx Thyroid Disease Cardiovascular History: Denies: Hx Hypertension Respiratory History: Denies: Hx Asthma, Hx Chronic Obstructive Pulmonary Disease (COPD) GI History: Denies: Hx Ulcer Infectious Disease History: No Infectious Disease History: Denies: Hx Hepatitis, Hx Human Immunodeficiency Virus (HIV), Traveled Outside the [place] in Last 30 Days - Family History Known Family History: Positive: None, Diabetes - Social History Alcohol Use: None Substance Use Type: Reports: None Smoking Status (MU): Never Smoked Tobacco Type: Cigarettes Amount Used/How Often: states social smoker Have You Smoked in the Last Year: No Review of Systems Constitutional: Negative Eyes: Negative ENT: Negative Cardiovascular: Negative Respiratory: Negative Positive: Abdominal Pain, Vomiting, Diarrhea, Nausea Genitourinary: Negative Musculoskeletal: Negative Skin: Negative Neurological: Negative Positive: Anxious All Other Systems Reviewed And Are Negative: Yes Physical Exam - Summary Physical Exam Summary: abd has no masses or ecchymosis. normoactive bowel sounds. no guarding or rigidity, diffisue mild tenderness with palpation of the abdomen. Triage Information Reviewed: Yes Vital Signs On Initial Exam: Initial Vitals Temp Pulse Resp BP Pulse Ox 99.3 F 104 16 113/83 96 09/03/19 22:42 09/03/19 22:42 09/03/19 22:42 09/03/19 22:42 09/03/19 22:42 Vital Signs Reviewed: Yes Appearance: Positive: Well-Appearing, No Pain Distress, Well-Nourished Skin: Positive: Warm, Skin Color Reflects Adequate Perfusion Eyes: Positive: EOMI, HEIDY ENT: Positive: Hearing grossly normal Respiratory/Lung Sounds: Positive: Clear to Auscultation, Breath Sounds Present Cardiovascular: Positive: RRR, S1, S2 Abdomen Description: Positive: Nontender, No Organomegaly, Soft. Negative: Distended, Guarding, McBurney's Point Tenderness, Peritoneal Signs Bowel Sounds: Positive: Present Musculoskeletal: Positive: Strength/ROM Intact Neurological: Positive: Sensory/Motor Intact, Alert, Oriented to Person Place, Time, Normal Gait, Speech Normal Psychiatric: Positive: Normal, Affect/Mood Appropriate AVPU Assessment: Alert Procedures - Sedation Patient Received Moderate/Deep Sedation with Procedure: No Diagnostics - Vital Signs Vital Signs Temp Pulse Resp BP Pulse Ox 09/03/19 22:42 99.3 F 104 16 113/83 96 - Laboratory Result Diagrams: 09/03/19 23:11 09/03/19 23:11 Lab Statement: Any lab studies that have been ordered have been reviewed, and results considered in the medical decision making process. Abdominal Pain Fem Course/Dx - Course Course Of Treatment: Pt evaluated for nausea, vomiting, diarrhea. Vitals noted.Labs show WBC 7.9 with CRP 32.65. negative lipase, negative influenza swab , urine appears contaminated and pt asymptomatic. Lactic acid 2.2 and anion gap mildly elevated at 15, likely due to lactic acidosis secondary to mild dehydration and vomiting/ diarrhea. Pt given zofran and IV fluid replacment. After labs returned it was discussed with the patient risks and benefits, and she desired CT imaging for further evaluation. CT of the abd/pelvis shows no acute changes. PT likely suffering from viral gastroenteritis. PT DC home with zofran RX and told to increase PO fluid intake. PT to see PCP in 3 days. - Diagnoses Differential Diagnosis: Positive: Appendicitis, Diverticulitis, Irritable Bowel Syndrome, Pancreatitis Provider Diagnoses: Gastroenteritis Discharge ED - Sign-Out/Discharge Documenting (check all that apply): Patient Departure - Discharge Plan Condition: Stable Disposition: HOME Prescriptions: Ondansetron ODT TAB* [Zofran 4 MG Odt TAB*] 4 mg PO Q6H PRN #12 tab.odt PRN Reason: Nausea Patient Education Materials: Gastroenteritis (ED) Referrals: [facility] [Outside] - 3 Days No Primary Care Phys,NOPCP [Primary Care Provider] - Additional Instructions: You were seen in the emergency department today for abdominal pain. There is no evidence that your symptoms are due to a life-threatening or infectious process requiring intervention at this time. Please follow up with your primary care provider or senior energy market coordinator in 3 days for further evaluation and management of your symptoms. Please return to the emergency department immediately if you develop any new or worsening symptoms. I have prescribed for you antinausea medication; zofran, which is to be taken every 6 hours as needed for nausea. - Billing Disposition and Condition Condition: STABLE Disposition: Home
[2019-09-03] MEDS ORDERED: Ondansetron INJ* 2 MG/ML VIAL IV ONE (23:03)
[2019-09-03] MEDS ORDERED: NS 0.9% 1000 ML** 1,000 ML IV ONE ×2 (23:03→23:47)
[2019-09-03 23:18] LABS: ABS Lymphocytes 0.5 10^3/ul (1.0-4.8); ABS Monocytes 0.5 10^3/ul (0-0.8); ABS Neutrophils 6.8 10^3/ul (1.5-7.7); Hematocrit 46 % (35-47); Lymphocyte % 6.6 %; Mean Corpuscular HGB Conc 35 g/dL (31-36); Mean Corpuscular Hemoglobin 30 pg (27-31); Mean Corpuscular Volume 87 fL (80-97); Mean Platelet Volume 8.1 fL (7.4-10.4); Platelet Count 239 10^3/uL (150-450); Red Blood Count 5.35 10^6 /uL (3.70-4.87); Red Cell Distribution Width 14 % (10-15); White Blood Count 7.9 10^3/uL (3.5-10.8)
[2019-09-03 23:36] LABS: ALT 18 U/L (7-52); AST 17 U/L (13-39); Albumin 5.2 g/dL (3.2-5.2); Albumin/Globulin Ratio 1.5 (1-3); Alkaline Phosphatase 125 U/L (34-104); Anion Gap 15 mmol/L (2-11); BUN/Creatinine Ratio 17.5 (8-20); Blood Urea Nitrogen 18 mg/dL (6-24); C Reactive Protein 32.65 mg/L (<8.01); CO2 Carbon Dioxide 25 mmol/L (22-32); Chloride 98 mmol/L (101-111); EGFR African American 77.2 (>60); EGFR Non-African American 63.8 (>60); Globulin 3.5 g/dL (2-4); Glucose 139 mg/dL (70-100); Magnesium 2.2 mg/dL (1.9-2.7); Potassium 3.5 mmol/L (3.5-5.0); Sodium 138 mmol/L (135-145); Total Protein 8.7 g/dL (6.4-8.9)
[2019-09-03 23:36] LABS: Urine Appearance Cloudy; Urine Bilirubin Negative (Negative); Urine Blood 2+ (Negative); Urine Color Amber; Urine Glucose Negative (Negative); Urine Ketones 1+ (Negative); Urine Nitrite Negative (Negative); Urine Protein 2+(100 mg/dL) (Negative); Urine Specific Gravity 1.031 (1.010-1.030); Urine Urobilinogen Negative (Negative)
[2019-09-03 23:40] LABS: Urine Bacteria Absent (Absent); Urine Red Blood Cell 2+(6-10/hpf) (Absent); Urine Squamous Epithelial Cell Present (Absent); Urine White Blood Cell 2+(11-20/hpf) (Absent)
[2019-09-03 23:43] LABS: HCG Pregnancy < 0.60 mIU/mL
[2019-09-03 23:49] LABS: Influenza A Molecular NEGATIVE (Negative); Influenza B Molecular NEGATIVE (Negative)
[2019-09-04] MEDS ORDERED: Ondansetron INJ* 2 MG/ML VIAL IV ONE (00:08)
[2019-09-04] MEDS ORDERED: Iohexol 300* (CONTRAST) 10 ML SDV IV ONE (01:52)
[2019-09-04 02:42] VITALS: BP 113/69
== END 2019-09-04 02:41 | disposition home or self-care (01) ==
LOC: ED 22:38
DX: K52.9 Noninfective gastroenteritis and colitis, unspecified (principal); R11.2 Nausea with vomiting, unspecified; Z79.3 Long term (current) use of hormonal contraceptives
CPT/HCPCS: 36415; 74177; 80053; 81003; 81015; 83605; 83690; 83735; 84484; 84702; 85025; 86140; 87086; 96361; 96374; 96376; 99282; J2405; Q9967

== ENCOUNTER 2022-08-20 12:01 | Observation (INO) ==
[2022-08-20] MEDS ORDERED: NS 0.9% 1000 ml BAG 1,000 ML IV ONE (12:45)
[2022-08-20] MEDS ORDERED: Ondansetron 4 mg VIAL 2 MG/ML 2 ml VIAL IV ONE (12:45)
[2022-08-20] MEDS ORDERED: Al Hydrox/Mg Hydrox/Simet LIQ 30 ML UDC PO ONE (12:46)
[2022-08-20 13:20] LABS: ABS Basophils 0.1 10^3/ul (0-0.2); ABS Lymphocytes 0.6 10^3/ul (1.0-4.8); ABS Monocytes 0.4 10^3/ul (0-0.8); Hematocrit 43 % (35-47); Hemoglobin 14.9 g/dL (12.0-16.0); Lymphocyte % 4.7 %; Mean Corpuscular HGB Conc 35 g/dL (31-36); Mean Corpuscular Hemoglobin 31 pg (27-31); Mean Corpuscular Volume 89 fL (80-97); Mean Platelet Volume 7.5 fL (7.4-10.4); Platelet Count 233 10^3/uL (150-450); Red Cell Distribution Width 13 % (10-15); White Blood Count 13.2 10^3/uL (3.5-10.8)
[2022-08-20 14:48] LABS: ALT 16 U/L (7-52); AST 16 U/L (13-39); Albumin 4.8 g/dL (3.2-5.2); Albumin/Globulin Ratio 1.8 (1-3); Alkaline Phosphatase 64 U/L (35-149); Anion Gap 14 mmol/L (2-11); Blood Urea Nitrogen 9 mg/dL (6-24); C Reactive Protein 1.08 mg/L (<8.01); CO2 Carbon Dioxide 22 mmol/L (22-32); Calcium 9.8 mg/dL (8.6-10.3); Chloride 101 mmol/L (101-111); Creatinine, Serum 0.54 mg/dL (0.51-0.95); Globulin 2.7 g/dL (2-4); Glucose 125 mg/dL (70-100); Lipase < 10 U/L (11.0-82.0); Potassium 3.5 mmol/L (3.5-5.0); Sodium 137 mmol/L (135-145); Total Protein 7.5 g/dL (6.4-8.9); eGFR CKD-EPI 126.2 (>60)
[2022-08-20] MEDS ORDERED: Ondansetron ODT 4 mg TAB 4 MG TAB SL ONE (18:08)
[2022-08-20] MEDS ORDERED: Metoclopramide 5 MG/ML VIAL (10 mg) IV SLOW PU ONE (19:40)
[2022-08-20] MEDS ORDERED: Lactated Ringers 1000 ml BAG 1,000 ML IV ONE (19:40)
[2022-08-20] MEDS: KCL 20 MEQ/100 ML IVPREMIX 20 MEQ/100 ML BAG IV SCH (21:25)
[2022-08-20 21:33] LABS: Magnesium 1.9 mg/dL (1.9-2.7)
[2022-08-21] MEDS: KCL 20 MEQ/100 ML IVPREMIX 20 MEQ/100 ML BAG IV SCH (00:20)
[2022-08-21 03:07] LABS: Urine Appearance Turbid; Urine Bilirubin Negative (Negative); Urine Blood Negative (Negative); Urine Color Yellow; Urine Glucose Negative (Negative); Urine Ketones 2+ (Negative); Urine Nitrite Negative (Negative); Urine Protein Negative (Negative); Urine Specific Gravity 1.018 (1.002-1.030); Urine Urobilinogen Negative (Negative)
[2022-08-21 03:22] LABS: Urine Benzodiazepine Screen None Detected (None Detect); Urine Cannabinoids Screen Presumptive Positive (None Detect); Urine Opiates Screen None Detected (None Detect)
[2022-08-21] MEDS: Lactated Ringers 1000 ml BAG 1,000 ML IV SCH ×2 (04:36→15:12)
[2022-08-21] MEDS ORDERED: Metoclopramide 5 MG/ML VIAL (10 mg) IV SLOW PU PRN (05:00)
[2022-08-21 07:00] LABS: ABS Lymphocytes 1.8 10^3/ul (1.0-4.8); ABS Neutrophils 8.4 10^3/ul (1.5-7.7); Eosinophil % 0.2 %; Hematocrit 40 % (35-47); Hemoglobin 13.3 g/dL (12.0-16.0); Lymphocyte % 16.3 %; Mean Corpuscular HGB Conc 34 g/dL (31-36); Mean Corpuscular Hemoglobin 30 pg (27-31); Mean Corpuscular Volume 91 fL (80-97); Mean Platelet Volume 7.9 fL (7.4-10.4); Platelet Count 203 10^3/uL (150-450); Red Blood Count 4.37 10^6 /uL (3.70-4.87); Red Cell Distribution Width 13 % (10-15); White Blood Count 11.2 10^3/uL (3.5-10.8)
[2022-08-21 07:34] LABS: Calcium 8.7 mg/dL (8.6-10.3); Creatinine, Serum 0.42 mg/dL (0.51-0.95)
[2022-08-21] MEDS ORDERED: Metoclopramide 5 MG/ML VIAL (10 mg) IV SLOW PU ONE (07:59)
[2022-08-21] MEDS ORDERED: Famotidine IV 10 MG/ML 2 ml VIAL (20 mg) IV SLOW PU ONE (07:59)
[2022-08-21] MEDS ORDERED: Metoclopramide 5 MG/ML VIAL (10 mg) IV PRN (19:57)
[2022-08-21] MEDS ORDERED: Metoclopramide 5 MG/ML VIAL (10 mg) ONE (20:04)
[2022-08-21] MEDS: Ondansetron 4 mg VIAL 2 MG/ML 2 ml VIAL IV PRN (22:34)
[2022-08-22] MEDS: Lactated Ringers 1000 ml BAG 1,000 ML IV SCH (02:27)
[2022-08-22] MEDS: Ondansetron 4 mg VIAL 2 MG/ML 2 ml VIAL IV PRN (06:20)
[2022-08-22 07:11] LABS: Calcium 8.4 mg/dL (8.6-10.3); Creatinine, Serum 0.43 mg/dL (0.51-0.95); Magnesium 1.8 mg/dL (1.9-2.7); Potassium 3.4 mmol/L (3.5-5.0); eGFR CKD-EPI 133.3 (>60)
[2022-08-22] MEDS ORDERED: Potassium Chlor 20 meq TAB.ER PO ONE (08:19)
[2022-08-22] MEDS ORDERED: Magnesium Sulfate IV 1GM/100ML 1 GM/100 ML BAG IV ONE (08:19)
[2022-08-22 11:28] VITALS: BP 106/67
== END 2022-08-22 13:00 | disposition home or self-care (01) ==
LOC: EDHOLD 12:01 → ED 12:01 → SUATTDRO 21:18 → MED 08-21 03:48
PROVIDERS: ADMIT Internal Medicine; ATTEND Student in an Organized Health Care Education/Training Program